=== PATIENT | female | born 1945 ===

== ENCOUNTER 2016-08-18 15:24 | Emergency (ER) | payer BC, MEDICARE ==
[2016-08-18 15:43] VITALS: BP 151/69
--- NOTE | 2016-08-18 16:15 | UC ---
Complaint Female HPI - HPI Summary HPI Summary: Patient presents with urgency, frequency, burning upon urination. Dark colored , cloudy urine. Denies flank pain. Denies diaphoresis and chills. Denies known fever. No abnormal vaginal discharge reported. Otherwise healthy. Hx of UTI 30 years ago and no recent antibiotic use. - History Of Current Complaint Chief Complaint: UCGU Stated Complaint: URINARY Time Seen by Provider: 08/18/16 15:59 Hx Obtained From: Patient Hx Last Menstrual Period: early 51 in age ?: No Onset/Duration: Sudden Onset Timing: Constant Severity Initially: Moderate Severity Currently: Moderate Pain Intensity: 5 Pain Scale Used: 0-10 Numeric Character: Burning, Cramping Aggravating Factor(s): Movement Associated Signs And Symptoms: Positive: Negative - Risk Factors Ectopic Risk Factor: Negative Ovarian Torsion Risk Factor: Negative - Allergies/Home Medications Allergies/Adverse Reactions: Allergies Allergy/AdvReac Type Severity Reaction Status Date / Time Sulfa Drugs Allergy Rash Verified 08/18/16 15:37 Sulfites Allergy Rash Verified 08/18/16 15:37 PMH/Surg Hx/FS Hx/Imm Hx Previously Healthy: Yes - Surgical History Surgical History: Yes Surgery Procedure, Year, and Place: B/L knee. L kidney ureter - Family History Known Family History: Positive: Unknown - Social History Occupation: Employed Full-time Lives: With Family Alcohol Use: Occasionally Substance Use Type: None Smoking Status (MU): Never Smoked Tobacco Review of Systems Constitutional: Negative Skin: Negative Respiratory: Negative Cardiovascular: Negative Gastrointestinal: Abdominal Pain, Nausea Genitourinary: Dysuria, Hematuria, Frequency, Urgency Motor: Negative Musculoskeletal: Negative Neurological: Negative Psychological: Negative All Other Systems Reviewed And Are Negative: Yes Physical Exam Triage Information Reviewed: Yes Appearance: Well-Appearing, No Pain Distress, Well-Nourished Vital Signs: Initial Vital Signs Temp 100.9 F 08/18/16 15:38 Pulse 86 08/18/16 15:38 Resp 16 08/18/16 15:38 BP 151/69 08/18/16 15:38 Pulse Ox 99 08/18/16 15:38 Vital Signs Reviewed: Yes Eye Exam: Normal Eyes: Positive: Conjunctiva Clear Neck exam: Normal Neck: Positive: Supple, Nontender, No Lymphadenopathy Cardiovascular Exam: Normal Cardiovascular: Positive: RRR Musculoskeletal Exam: Normal Musculoskeletal: Positive: Strength Intact Neurological Exam: Normal Neurological: Positive: Alert Psychological: Positive: Age Appropriate Behavior Skin Exam: Normal Complaint Female Dx - Course Course Of Treatment: UA performed. WBC and leuks seen. Labs WNL. Patient experiencing urgency, frequency and pain on urination. Dark urine noted. No abnormal vaginal discharge or bleeding. No CVA tenderness bilaterally. No previous UTI within last 6 months and no recent Augmentin use. Keflex twice daily for 7 days. Pyridium given for comfort. Return precautions and follow up with PCP. - Differential Dx/Diagnosis Differential Diagnosis/HQI/PQRI: Pelvic Inflammatory Disease, Sexually Transmitted Disease, Urinary Tract Infection Provider Diagnoses: UTI Discharge - Discharge Plan Condition: Stable Disposition: HOME Prescriptions: Cephalexin CAP* [Keflex CAP*] 500 mg PO BID #14 cap MDD 2 Phenazopyridine TAB* [Pyridium 100 mg TAB*] 100 mg PO TID #12 tab Patient Education Materials: Urinary Tract Infection in Women (ED) Referrals: Mal Coombs MD [Primary Care Provider] - Additional Instructions: Dx. Urinary Tract Infection Drink plenty of fluids. Supplement with cranberry or coronel juice. You may also take an over the counter cranberry supplement. If you have any questions about this, you may ask your pharmacist. If your symptoms have not improved in 1-2 days, if you develop fever, sweats or chills, please go to your emergency room, or call your PCP. Antibiotics were prescribed to you. Please take as directed. Supplement with over the counter probiotics on the opposite schedule of your antibiotic to prevent secondary infections. Do not take together as they may counteract each other. Keflex twice daily for 7 days. Pyridium: This medication is used to treat pain, burning, increased urination, and increased urge to urinate. These symptoms are usually caused by infection, injury, surgery, catheter, or other conditions that irritate the lower urinary tract. Pyridium will treat the symptoms of a urinary tract infection, but this medication does not treat the actual infection. Take the antibiotic that your doctor prescribes to treat your infection. Pyridium will most likely darken the color of your urine to an orange or red color. This is a normal effect and is not cause for alarm unless you have other symptoms such as pale or yellowed skin, fever, stomach pain, nausea, and vomiting. Darkened urine may also cause stains to your underwear, which may or may not be removed by laundering. It can also permanently stain soft contact lenses, and you should not wear them while taking this medicine.
== END 2016-08-18 16:21 | disposition home or self-care (01) ==
LOC: UCCORT 15:24
DX: N39.0 Urinary tract infection, site not specified (principal); A49.8 Other bacterial infections of unspecified site
CPT/HCPCS: 81003; 87077; 87086; 87186; 99212; G0463

== ENCOUNTER 2017-09-06 20:08 | Emergency (ER) | payer BC ==
[2017-09-06 20:25] VITALS: BP 121/69
[2017-09-06] MEDS ORDERED: Erythromycin OPTH OINT* APPLIC OINT RIGHT EYE ONE (20:41)
[2017-09-06] MEDS ORDERED: Amoxicillin/Clavulanate TAB* 875 MG PO ONE (20:42)
--- NOTE | 2017-09-06 20:46 | UC ---
Skin Complaint HPI - HPI Summary HPI Summary: Patient presents with a rash to her upper eyelid that began today. She states that one of her coworkers was diagnosed with shingles last week and she is concerned that this may be shingles. She describes it as an area of her redness , swelling and tenderness. She denies any pain, redness or discharge to the eye itself. She did have chickenpox as a child and has even had shingles is an adult on her back. She has no associated fever or chills. She denies any associated malaise. She states the eyelid was itching earlier so she applied a baking soda paste. She is very concerned about this being shingles because her is immune compromised and she does not wish for him to contract shingles. - History of Current Complaint Chief Complaint: UCGeneralIllness Time Seen by Provider: 09/06/17 20:16 Stated Complaint: SHINGLES AROUND RIGHT EYE Hx Obtained From: Patient Hx Last Menstrual Period: early 51 in age Onset/Duration: Gradual Onset Timing: Constant Pain Intensity: 6 Aggravating Factor(s): Nothing Alleviating Factor(s): Nothing Associated Signs & Symptoms: Positive: Rash - R upper lid. Negative: Fever - Allergy/Home Medications Allergies/Adverse Reactions: Allergies Allergy/AdvReac Type Severity Reaction Status Date / Time Sulfa (Sulfonamide Allergy Rash Verified 09/06/17 20:18 Antibiotics) Home Medications: Home Medications Isosorbide Dinitrate TAB* [Isordil TAB*] 1 tab DAILY 09/06/17 [History Confirmed 09/06/17] Review of Systems Constitutional: Negative Skin: Rash - R upper lid Eyes: Negative ENT: Negative Respiratory: Negative Cardiovascular: Negative Gastrointestinal: Negative Genitourinary: Negative Motor: Negative Neurovascular: Negative Musculoskeletal: Negative Neurological: Negative Psychological: Negative Is Patient Immunocompromised?: No All Other Systems Reviewed And Are Negative: Yes PMH/Surg Hx/FS Hx/Imm Hx - Additional Past Medical History Additional PMH: Lyme dz Psychological History: Anxiety - Surgical History Surgical History: Yes Surgery Procedure, Year, and Place: B/L knee. L kidney ureter - Family History Known Family History: Positive: Unknown - Social History Occupation: Employed Full-time Lives: With Family Alcohol Use: Occasionally Substance Use Type: None Smoking Status (MU): Never Smoked Tobacco - Immunization History Vaccination Up to Date: Yes Physical Exam Triage Information Reviewed: Yes Appearance: Well-Appearing Vital Signs: Initial Vital Signs Temp 98.9 F 09/06/17 20:20 Pulse 88 09/06/17 20:20 Resp 17 09/06/17 20:20 BP 121/69 09/06/17 20:20 Pulse Ox 100 09/06/17 20:20 Vital Signs Reviewed: Yes Eyes: Positive: Other: - Exam of the eyes: Right upper lid has some slight swelling at the central lash line with some corresponding mild erythema that extends up into the eyelid. There are no vesicles. Patient notes the area to be tender to palpation but is not fluctuant. There is no additional rash to either eye. Pupils are equal round reactive to light. Extraocular movements are intact. Conjunctiva are not injected. Anterior chambers are clear. Extraocular movement causes no pain. There is no pre-or postauricular adenopathy. Lids on the right everted and no additional pathology appreciated. ENT: Positive: Pharynx normal, TMs normal. Negative: Nasal congestion, Nasal drainage Neck: Positive: Supple, Nontender, No Lymphadenopathy Respiratory: Positive: Lungs clear, Normal breath sounds Cardiovascular: Positive: RRR, No Murmur Abdomen Description: Positive: Nontender, No Organomegaly, Soft Bowel Sounds: Positive: Present Musculoskeletal: Positive: ROM Intact Neurological: Positive: Alert Psychological: Positive: Age Appropriate Behavior Skin Exam: Normal Course/Dx - Course Course Of Treatment: Patient's exam is consistent with a stye and secondary superficial right upper lid infection. There is no concern for periorbital or orbital cellulitis. Exam of the globe is unremarkable. I will tx patient with topical erythromycin ophthalmic ointment and Augmentin. She has no history of MRSA or risk for overt MRSA exposure. - Diagnoses Provider Diagnoses: sty OD, superficial skin infection R upper eye lid. Discharge - Sign-Out/Discharge Documenting (check all that apply): Patient Departure - Discharge Plan Condition: Stable Disposition: HOME Prescriptions: Amoxicillin/Clavulanate TAB* [Augmentin TAB 875*] 875 mg PO BID 7 Days #14 tab Patient Education Materials: Cellulitis (DC), Stye (ED) Referrals: Mal Coombs MD [Primary Care Provider] - If Needed Pia OD,Milo Warren [Medical Doctor] - 5 Days Additional Instructions: DIAGNOSIS: STY RIGHT UPPER LID. SUPERFICIAL SKIN INFECTION RIGHT UPPER LID - Billing Disposition and Condition Condition: STABLE Disposition: Home Attestation Statement User Type: Provider - Patient presents to urgent care complaining of pain in her left lower dental area. Patient states she previously had infection of her having was tooth extracted approximately 3 months ago. Patient states this had completely improved. Patient states this morning she woke up with a little bit of discomfort. Patient states that the day progressed she has increased pain. Patient denies fevers or chills. Patient denies nausea or vomiting. Patient denies pain in her ear. No analgesic taken. Temperature makes it worse. Patient does not currently have a dentist.. Patient without concerns of I was available for consult. This patient was seen by the REYNALDO. The patient was not presented to, seen by, or examined by me. -Mary Jane
== END 2017-09-06 21:03 | disposition home or self-care (01) ==
LOC: UCCORT 20:08
DX: H00.021 Hordeolum internum right upper eyelid (principal); L08.9 Local infection of the skin and subcutaneous tissue, unspecified; Z88.2 Allergy status to sulfonamides
CPT/HCPCS: 99212; A9270-GY; G0463